=== PATIENT | female | born 1950 | race Caucasian/White ===

== ENCOUNTER → 2017-08-11 | Outpatient (CLI) | payer BC | LOC: PROCWHC3 11:01 | PROVIDERS: ATTEND Physician Assistant | DX: Z53.9 Procedure and treatment not carried out, unspecified reason (principal) ==

== ENCOUNTER → 2021-01-22 | Outpatient (CLI) | payer BC ==
--- NOTE | 2021-01-22 16:33 | PE ---
Nuclear medicine PET/CT HISTORY: Solitary pulmonary nodule, initial, R 91.1 Patient received 11.5 mCi F-18 FDG intravenously in delayed scanning was performed from the skull bas e to the mid thighs. Localization and attenuation correction CT scan was performed. There are no previous studies available for comparison. Chest and neck: There is a left upper extr2 lobe soft tissue mass that shows hypermetabolic uptake an d measures approximately 17 mm in AP dimension. There is no pleural or pericardial effusion. Subpleur al right lower lobe nodule is present on axial image #105 measuring approximately 1 cm without defini te associated uptake. There is no mediastinal, axillary, or hilar adenopathy, although there is some mild uptake associated with the left axillary nodes. ABDOMEN: There is no adrenal mass, no evident liver mass or retroperitoneal adenopathy. There is a hi atal hernia present. Patient is post cholecystectomy. Uptake is associated with the right colon which may be physiologic, there is colonic interposition anterior to the liver. There is no ascites. Urina ry bladder is contracted. Osseous structures: There is a focus of uptake present at the level of the soft tissues just superior to the left femoral neck which is indeterminate. Degenerative disc changes, facet arthropathy noted in the lower lumbar spine. Mild uptake within the shoulders may be due to underlying arthropathy. IMPRESSION: Abnormal uptake in the left upper lobe, indeterminate left upper lobe mass. Indeterminate uptake involving the left hip as described and within the left axilla.
== END | disposition home or self-care (01) ==
LOC: RADPETMAIN 13:15
PROVIDERS: ATTEND Physician Assistant
DX: R91.1 Solitary pulmonary nodule (principal)
CPT/HCPCS: 78815; A9552